=== PATIENT | female | born 1995 | race Caucasian/White ===

== ENCOUNTER → 2017-01-23 | Outpatient (CLI) | payer OTHER ==
[~2017-01-23] MED LIST: ACET-1256 PO; CEPH500C2 PO; ONDA4TAB46 PO; PRENTAB26 PO
[2017-01-23 16:39] LABS: URINE APPEARANCE CLEAR (CLEAR); URINE BILIRUBIN NEG (NEG); URINE COLOR YELLOW; URINE NITRITE NEG (NEG); URINE PH 6.5 (4.5-7.5); URINE SPECIFIC GRAVITY 1.014 (1.000-1.030); UROBILINOGEN NEG (NEG)
[2017-01-23 16:45] LABS: MANUAL MICROSCOPIC REQUIRED? NO; REVIEW REQ? NO
== END | disposition home or self-care (01) ==
LOC: C.LABSPEC 16:20
PROVIDERS: ATTEND Obstetrics & Gynecology
DX: Z34.90 Encounter for supervision of normal pregnancy, unspecified, unspecified trimester (principal)

== ENCOUNTER → 2017-01-28 | Outpatient (CLI) | payer OTHER ==
[2017-01-31 00:51] LABS: CHLAMYDIA TRACH RNA*** NOT DETECTED (NOT DETECTED); GC (NEIS GONORRHOEAE)RNA** NOT DETECTED (NOT DETECTED)
== END | disposition home or self-care (01) ==
LOC: C.LABSPEC 17:40
PROVIDERS: ATTEND Obstetrics & Gynecology
DX: Z34.90 Encounter for supervision of normal pregnancy, unspecified, unspecified trimester (principal)

== ENCOUNTER → 2017-01-28 | Outpatient (CLI) | payer OTHER ==
[2017-01-28 15:56] LABS: BASO % 0.2 %; BASO ABS # 0.02 K/uL (0-0.2); COMPLETE YES; HEMATOCRIT 41.4 % (37-47); IG% 0.3 %; LYMPH % 18.3 %; LYMPH ABS # 2.11 K/uL (1.2-3.4); MEAN CELL VOLUME 86.3 fL (80-100); MEAN CORPUSCULAR HEMOGLOBIN 28.8 pg (25-34); MEAN CORPUSCULAR HGB CONC 33.3 g/dl (32-36); MEAN PLATELET VOLUME 10.9 fL (7.4-10.4); MONO % 6.9 %; NEUT % 73.3 %; PLATELET COUNT 254 K/uL (130-400); WHITE BLOOD COUNT 11.53 K/uL (4.8-10.8)
== END | disposition home or self-care (01) ==
LOC: C.LAB1850 15:07
PROVIDERS: ATTEND Obstetrics & Gynecology
DX: Z34.90 Encounter for supervision of normal pregnancy, unspecified, unspecified trimester (principal)

== ENCOUNTER 2017-02-24 18:49 | Emergency (ER) | payer OTHER ==
[~2017-02-24] VITALS: Ht 154.9 cm; Wt 77.4 kg
[2017-02-24 18:53] VITALS: BP 113/76; PULSE 74; TEMP 37.1; O2SAT 98; Ht 154.9 cm; Wt 77.4 kg
[2017-02-24] MEDS ORDERED: ACETAMINOPHEN 500 MG TAB PO STA (19:08)
[2017-02-24] MEDS ORDERED: CEPH500C2 PO (19:12)
[2017-02-24] MEDS ORDERED: CEPHALEXIN 500MG HOME PACK 1 EA BTL PO ONE (19:15)
[2017-02-24] MEDS ORDERED: CEPHALEXIN MONOHYDRATE 250 MG CAP PO ONE (19:15)
--- NOTE | 2017-02-24 19:55 | EMERGENCY ROOM VISIT NOTE ---
History Report prepared by Elie: Suzi [place] Under the Supervision of: Harris RodriguezO. First contact with patient: 18:57 Chief Complaint: DENTAL PAIN Stated Complaint: TOOTHACHE,SWELLING,ETC Nursing Triage Summary: possible tooth abscess, left side History of Present Illness The patient is a 21 year old female who presents to the Emergency Room with complaints of worsening dental pain for the past 3 days. The patient notes pain around one of her left lower molars. She states that part of her tooth has broken off and she has had issues with pain in the past. She has seen her dentist for this problem and was unable to get the tooth removed because she was . The patient states that she is currently 12 weeks . Today her pain became much worse than it has been. She took Tylenol at 3pm. She rates her current pain as an 8/10 in severity. Source of History: patient Onset: 3 days ago Position: teeth Symptom Intensity: 8/10 Timing: worsening Modifying Factors (Relieving): tylenol Review of Systems See HPI for pertinent positives & negatives. A total of 6 systems reviewed and were otherwise negative. Past Medical & Surgical Medical Problems: (1) Abdominal pain (2) Abdominal pain (3) Abdominal pain affecting , antepartum (4) Dental abscess (5) Dental abscess (6) Depression (7) Nausea, vomiting and diarrhea (8) Normal labor and delivery (9) Pain, dental (10) Pelvic pain (11) Premature infant of 33 weeks gestation (12) contractions (13) Right ovarian cyst (14) Supervision of other normal Family History Cancer Social History Smoking Status: Former Smoker Alcohol Use: occasionally Drug Use: none Marital Status: single Housing Status: lives with family Occupation Status: employed Current/Historical Medications Scheduled Cephalexin Monohydrate (Keflex), 500 MG PO QID Allergies Coded Allergies: No Known Allergies (Unverified , 07/15/16) Physical Exam Vital Signs Date Time Temp Pulse Resp B/P (MAP) Pulse Ox O2 Delivery O2 Flow Rate FiO2 02/24/17 18:53 37.1 74 17 113/76 98 Room Air Physical Exam GENERAL: Patient is awake, alert, mildly anxious appearing but overall comfortable. EYES: The conjunctivae are clear. The pupils are round and reactive. EARS, NOSE, MOUTH AND THROAT: The nose is without any evidence of any deformity. Mucous membranes are moist tongue is midline. There were dental caries noted in the left lower primary molar. There was gumline swelling but no erythema or fluctuance noted. There was significant tenderness to percussion. There was no trismus or swelling over the buccal mucosa. NECK: The neck is nontender and supple. RESPIRATORY: Normal respiratory effort is noted there is no evidence of wheezing rhonchi or rales CARDIOVASCULAR: Regular rate and rhythm noted there no murmurs rubs or gallops normal S1 normal S2 GASTROINTESTINAL: The abdomen is soft. Bowel sounds are present in all quadrants. Abdomen is nontender MUSCULOSKELETAL/EXTREMITIES: There is no evidence of gross deformity full range of motion is noted in the hips and shoulders Medical Decision & Procedures Medications Administered Medications (Trade) Dose Ordered Sig/Glenn Route Start Time Stop Time Status Last Admin Dose Admin Cephalexin Monohydrate (Keflex Cap) 500 mg NOW ONCE PO 02/24/17 19:15 02/24/17 19:16 DC 02/24/17 19:16 500 MG Cephalexin Monohydrate (Keflex 500MG Home Pack) 1 homepack NOW ONCE PO 02/24/17 19:15 02/24/17 19:16 DC 02/24/17 19:16 1 HOMEPACK Acetaminophen (Tylenol Tab) 1,000 mg ONE STAT PO 02/24/17 19:08 02/24/17 19:10 DC 02/24/17 19:16 1,000 MG ED Course 185: The patient was evaluated in room A4B. A complete history and physical examination were performed. At this time I discussed the results and treatment plan with the patient. I answered all pertaining questions that she had. She expressed understanding and verbalized agreement The patient will be discharged home. 190: Tylenol tab 1000 mg PO 1914: Keflex 500 mg PO 1 homepack, Keflex 500 mg PO Medical Decision Differential diagnosis: Etiologies such as fracture, dislocation, neurovascular compromise, compartment syndrome, soft tissue injury, as well as others were entertained. Medication Reconciliation: I attest that I have personally reviewed the patient' s current medications list. Blood pressure screening: Patient was found to have normal blood pressure on screening and does not require follow-up. The patient is a 21-year-old female who presented to the emergency department for an evaluation of dental pain. The patient has a dental carry on her left lower molar which has given her problems in the past but because she is she cannot have definitive care. The patient had some gumline swelling but no definite signs of abscess which I felt could be drained at this time. The patient was started on antibiotic. The patient was encouraged to follow-up with her primary care physician or her primary dentist this was possible. She was also encouraged to continue using Tylenol as directed for pain and return to the emergency Department immediately if she develops signs of fever or trismus or significant swelling. [place] Drug Monitoring [place] Search Results: patient reviewed within database, no issues identified Impression Primary Impression: Pain, dental Additional Impression: Dental caries Scribe Attestation The scribe's documentation has been prepared under my direction and personally reviewed by me in its entirety. I confirm that the note above accurately reflects all work, treatment, procedures, and medical decision making performed by me. Departure Information Dispostion Home / Self-Care Prescriptions Cephalexin Monohydrate (KEFLEX) 500 Mg Cap 500 MG PO QID, #28 CAP Prov: Eliazar Padilla, DO 02/24/17 Referrals No Doctor, Assigned (PCP) Forms HOME CARE DOCUMENTATION FORM, IMPORTANT VISIT INFORMATION Patient Instructions My [facility] Additional Instructions Call your dentist to schedule a follow-up appointment. Continue using Tylenol as directed for pain. Continued a full course of antibiotic. Return to the emergency Department immediately if he develop worsening swelling high fever inability to open her mouth or arises. Problem Qualifiers
== END 2017-02-24 19:24 | disposition home or self-care (01) ==
LOC: C.EDB 18:50 → C.EDA 19:24
DX: O99.611 Diseases of the digestive system complicating pregnancy, first trimester (principal); K08.89 Other specified disorders of teeth and supporting structures; K02.9 Dental caries, unspecified; Z3A.12 12 weeks gestation of pregnancy; Z87.51 Personal history of pre-term labor; Z87.891 Personal history of nicotine dependence

== ENCOUNTER → 2017-03-28 | Outpatient (CLI) | payer OTHER ==
[2017-03-28 13:57] LABS: GTGD 50 Grams
== END | disposition home or self-care (01) ==
LOC: C.LAB1850 11:35
PROVIDERS: ATTEND Obstetrics & Gynecology
DX: Z34.82 Encounter for supervision of other normal pregnancy, second trimester (principal)

== ENCOUNTER 2017-04-02 03:34 | Emergency (ER) | payer OTHER ==
[~2017-04-02] VITALS: Ht 154.9 cm; Wt 77.9 kg
[~2017-04-02 03:34] MED LIST changes: -ACET-1256 PO; -ONDA4TAB46 PO; -PRENTAB26 PO
[2017-04-02 03:39] VITALS: BP 109/78; TEMP 36.8; Ht 154.9 cm; Wt 77.9 kg
--- NOTE | 2017-04-02 03:59 | EMERGENCY ROOM VISIT NOTE ---
History Report prepared by Elie: Corby Sandoval Under the Supervision of: Dr. Edward James M.D. First contact with patient: 03:43 Chief Complaint: NECK PAIN Stated Complaint: STIFF,PAINFUL NECK History of Present Illness The patient is a 21 year old female who presents to the Emergency Room with complaints of stiff-like neck pain that began 4 days ago. She rates her pain a 7 /10 in severity. She denies any trauma, lifting, or long drives. She denies any fevers. Her pain is radiating down her back. Movement makes her pain worse. She recently finished a course of antibiotics for her teeth, which are doing significantly better. She did not take any medications prior to arrival. This is because the patient is with her second child. She is 17 weeks . She has a past medical history of sciatica, but notes that it does not feel like that. Source of History: patient Onset: 4 days ago Position: neck Symptom Intensity: 7/10 Quality: other (Tightness) Timing: constant Modifying Factors (Worsening): movement Associated Symptoms: No fevers Review of Systems See HPI for pertinent positives & negatives. A total of 6 systems reviewed and were otherwise negative. Past Medical & Surgical Medical Problems: (1) Abdominal pain (2) Abdominal pain (3) Abdominal pain affecting , antepartum (4) Dental abscess (5) Dental abscess (6) Depression (7) Nausea, vomiting and diarrhea (8) Normal labor and delivery (9) Pain, dental (10) Pelvic pain (11) Premature infant of 33 weeks gestation (12) contractions (13) Right ovarian cyst (14) Supervision of other normal Family History Cancer Social History Smoking Status: Never Smoker Alcohol Use: occasionally Drug Use: none Marital Status: single Housing Status: lives with family Occupation Status: employed Current/Historical Medications No Active Prescriptions or Reported Meds Allergies Coded Allergies: No Known Allergies (Unverified , 04/02/17) Physical Exam Vital Signs Date Time Temp Pulse Resp B/P (MAP) Pulse Ox O2 Delivery O2 Flow Rate FiO2 04/02/17 04:17 77 18 99 04/02/17 03:39 36.8 75 18 109/78 99 Room Air Physical Exam GENERAL: Patient is well appearing and in no acute distress. HEENT: No acute trauma, normocephalic atraumatic, mucous membranes moist, no nasal congestion, no scleral icterus. NECK: No stridor, no adenopathy, no meningismus, trachea is midline. LUNGS: No dyspnea. Clear to auscultation and equal bilaterally. No wheeze, no rhonchi. HEART: Regular rate and rhythm. No murmurs, rubs, gallops appreciated. ABDOMEN: Soft, nontender, bowel sounds positive, fundus is consistent with dates , no peritonitis. BACK: No midline tenderness, no CVA tenderness NEUROLOGIC: Alert and oriented, no acute motor or sensory deficits, no focal weakness, cranial nerves grossly intact. SKIN: No rash, no jaundice, no diaphoresis. Medical Decision & Procedures ED Course 0343: The patient was evaluated in room B10. A complete history and physical exam was performed. Medical Decision Medication Reconciliation: I attest that I have personally reviewed the patient 's current medication list. Blood pressure screening: Patient was found to have normal blood pressure on screening and does not require follow-up. 21 female who is 17 wks arrives for evaluation of bilateral lower cervical paraspinal muscle pain. Consistent with strain. No neuro deficits. No fevers. No other symptoms. No evidence of meningitis. She has full ROM neck without rigidity. Stable and comfortable. Discussed medications she can use such as Tylenol and Benadryl that are safe in . Reviewed symptoms requiring RTED. Impression Primary Impression: Neck muscle strain Scribe Attestation The scribe's documentation has been prepared under my direction and personally reviewed by me in its entirety. I confirm that the note above accurately reflects all work, treatment, procedures, and medical decision making performed by me. Departure Information Dispostion Home / Self-Care Prescriptions No Active Prescriptions or Reported Meds Referrals No Doctor, Assigned (PCP) Forms HOME CARE DOCUMENTATION FORM, IMPORTANT VISIT INFORMATION, WORK / SCHOOL INSTRUCTIONS Patient Instructions My [facility], Neck Strain - [facility] Additional Instructions Tylenol (acetaminophen) and Benadryl (diphenhydramine) are safe in .
[2017-04-02 04:17] VITALS: PULSE 77; O2SAT 99
== END 2017-04-02 04:18 | disposition home or self-care (01) ==
LOC: C.EDB 03:35
DX: S16.1XXA Strain of muscle, fascia and tendon at neck level, initial encounter (principal); X58.XXXA Exposure to other specified factors, initial encounter; O99.89 Other specified diseases and conditions complicating pregnancy, childbirth and the puerperium; Z3A.17 17 weeks gestation of pregnancy; Z80.9 Family history of malignant neoplasm, unspecified

== ENCOUNTER 2017-05-10 21:37 | Outpatient (CLI) | payer OTHER ==
[~2017-05-10] VITALS: Ht 154.9 cm; Wt 77.3 kg
[2017-05-10 22:31] VITALS: Ht 154.9 cm; Wt 77.3 kg
[2017-05-10] MEDS ORDERED: ACET-1256 PO (22:34)
[2017-05-10 22:40] LABS: URINE APPEARANCE TURBID (CLEAR); URINE BILIRUBIN NEG (NEG); URINE COLOR YELLOW; URINE EPITHELIAL CELL AUTO >30 /lpf (0-5); URINE NITRITE NEG (NEG); URINE PH 7.5 (4.5-7.5); URINE SPECIFIC GRAVITY 1.024 (1.000-1.030); UROBILINOGEN NEG (NEG); ZZUR CULT IF INDIC CLEAN CATCH YES
[2017-05-10 22:41] LABS: MANUAL MICROSCOPIC REQUIRED? NO; REVIEW REQ? NO
--- NOTE | 2017-05-15 14:24 | EDITING REQUIRED CODING QUERY ---
DIAGNOSIS NEEDED To promote full compliance with coding requirements relating to patient care, physician participation is requested in all cases of planning management it specialist uncertainty. Please assist us with the question(s) below: Coding Question: The patient received care in labor and delivery on 05/10/17 as noted within the record. Please document the diagnosis that is being addressed by the medication/treatment. Provider Response: DIAGNOSIS: Abdominal pain in WEEKS GESTATION: 23 week Thank you for your assistance, Natalee Acosta - Leakage Tester
== END 2017-05-10 23:11 | disposition home or self-care (01) ==
LOC: C.LD 21:37 → C.OPB 21:37
PROVIDERS: ATTEND Obstetrics & Gynecology
DX: O99.89 Other specified diseases and conditions complicating pregnancy, childbirth and the puerperium (principal); R10.9 Unspecified abdominal pain; Z3A.23 23 weeks gestation of pregnancy

== ENCOUNTER 2017-05-12 15:52 | Emergency (ER) | payer OTHER ==
[~2017-05-12] VITALS: Ht 154.9 cm; Wt 78.2 kg
[~2017-05-12 15:52] MED LIST changes: +ACET-1256 PO; -CEPH500C2 PO
[2017-05-12 16:08] VITALS: TEMP 36.8; Ht 154.9 cm; Wt 78.2 kg
[2017-05-12] MEDS ORDERED: SODIUM CHLORIDE 0.9% 1000ML 1,000 ML IV ONE (16:45)
[2017-05-12 16:50] LABS: BASO % 0.2 %; BASO ABS # 0.02 K/uL (0-0.2); COMPLETE YES; EOS % 0.4 %; HEMATOCRIT 36.1 % (37-47); IG% 0.4 %; LYMPH % 13.7 %; LYMPH ABS # 1.43 K/uL (1.2-3.4); MEAN CELL VOLUME 85.3 fL (80-100); MEAN CORPUSCULAR HEMOGLOBIN 29.8 pg (25-34); MEAN CORPUSCULAR HGB CONC 34.9 g/dl (32-36); MONO % 5.7 %; NEUT % 79.6 %; PLATELET COUNT 210 K/uL (130-400); RED BLOOD COUNT 4.23 M/uL (4.2-5.4); WHITE BLOOD COUNT 10.44 K/uL (4.8-10.8)
--- NOTE | 2017-05-12 16:50 | EMERGENCY ROOM VISIT NOTE ---
History First contact with patient: 16:13 Chief Complaint: ABDOMINAL PAIN Stated Complaint: SEVERE STOMACH PAIN, Nursing Triage Summary: Pt states seen here 2 night ago for "stomach pain". Pt states she is 23 wks preg, was sent upstairs and d/c home. Pt states, "I have constipation that just started yesterday. Yesterday I had nausea." Lower abd pain x 4 days. Pain worse after eating. History of Present Illness The patient is a 22 year old female who presents to the Emergency Room with complaints of abdominal pain that started 4 days ago. She describes it as a sharp, intermittent pain around her umbilicus and in the epigastric region. She is also has severe nausea. She has not had any vomiting. She did have loose stools a few days ago. Now she feels constipated. He denies any fever or chills. The patient is 23 weeks . She is with 2 miscarriages. The patient was monitored on the OB floor 2 days ago for these symptoms. She was told that it was not related to the baby. She denies any bleeding. Good movement. She is not taking anything for pain. Review of Systems 10 system review performed and negative unless noted in HPI or below Past Medical/Surgical History Medical Problems: (1) Abdominal pain (2) Abdominal pain (3) Abdominal pain affecting , antepartum (4) Dental abscess (5) Dental abscess (6) Depression (7) Nausea, vomiting and diarrhea (8) Normal labor and delivery (9) Pain, dental (10) Pelvic pain (11) Premature of 33 weeks gestation (12) contractions (13) Right ovarian cyst (14) Supervision of other normal Family History Cancer Social History Smoking Status: Former Smoker Alcohol Use: occasionally Drug Use: none Marital Status: single Housing Status: lives with family Occupation Status: employed Current/Historical Medications Scheduled Multivit/Min/Iron/Fol Ac/Pren ( Vitamin), 1 TAB PO DAILY Physical Exam Vital Signs Date Time Temp Pulse Resp B/P (MAP) Pulse Ox O2 Delivery O2 Flow Rate FiO2 05/12/17 18:28 66 18 135/102 100 Room Air 05/12/17 17:51 66 05/12/17 16:08 36.8 70 20 111/69 97 Room Air Physical Exam VITALS: Vitals are noted on the nurse's note and reviewed by myself. Vital signs stable. GENERAL: 22-year-old female, in no acute distress, nondiaphoretic, well- developed well-nourished. SKIN: The skin was without rashes, erythema, edema, or bruising. HEAD: Normocephalic atraumatic. MOUTH: Mucous membranes fairly dry HEART: Regular rate and rhythm without murmurs gallops or rubs. LUNGS: Clear to auscultation bilaterally without wheezes, rales or rhonchi. No accessory muscle use. ABDOMEN: Bowel sounds present, but hypoactive. Gravid..Soft, nontender, without organomegaly. No guarding or rebound tenderness. MUSCULOSKELETAL: No muscle atrophy, erythema, or edema noted. Full range of motion in all extremities. No tenderness to palpation. Normal gait. Strength 5/5 throughout. NEURO: Patient was alert and oriented to person place and time. Normal sensation to touch. No focal neurological deficits. Medical Decision & Procedures ER Provider Diagnostic Interpretation: Patient Name: MARA MARIE Unit Number: [id number] Dictated: 05/12/171909 Transcribed: 05/12/171909 JRB Printed Date/Time: [~ rep prt dt]/[~ rep prt tm] [~ rep ct labl] - [~ rep ct ivnm] [facility] Radiology Department [place] [id number] Dictated: 05/12/171909 Transcribed: 05/12/171909 JRB Printed Date/Time: [~ rep prt dt]/[~ rep prt tm] [~ rep ct labl] - [~ rep ct ivnm] GALLBLADDER-ABD LIMITED HISTORY: 22 years-old Female acute epigastric abd pain n/v worse with eating COMPARISON: CT abdomen and pelvis 02/03/2010 TECHNIQUE: Multiple real-time sonographic images of the abdominal right upper quadrant were obtained assessing grayscale appearance and color flow. FINDINGS: The imaged portions of the pancreas are unremarkable with the body and tail obscured by bowel gas. Hepatic parenchyma is homogeneous without focal mass. There is minimal layering sludge within the gallbladder lumen without shadowing cholelithiasis, gallbladder wall thickening or pericholecystic fluid collections. Sonographic Buck sign was reported as negative. Common bile duct is within the upper limits of normal near the pancreatic head, 0.6 cm without obstructing stone or mass identified. Imaged right kidney is unremarkable without hydronephrosis. IMPRESSION: 1. Mild gallbladder sludge without sonographic evidence of cholelithiasis or acute cholecystitis. 2. Common bile duct measures within the upper limits of normal near the pancreatic head, 0.6 cm without obstructing stone or mass identified . The above report was generated using voice recognition software. It may contain grammatical, syntax or spelling errors. Electronically signed by: Jhonny Yates M.D. 05/12/2017 7:13 PM Dictated Date/Time: 05/12/2017 7:10 PM The status of this report is Signed. Draft = Not yet reviewed or approved by Radiologist. Signed = Reviewed and approved by Radiologist. <AttendingPhy></AttendingPhy> <FamilyPhy>Len Dumont M.D.</FamilyPhy> < PrimaryPhy>Len Dumont M.D.</PrimaryPhy> <UnitNumber>[id number]</ UnitNumber> <VisitNumber>[id number]</VisitNumber> <PatientName>MARA MARIE< /PatientName> <DateOfBirth>1995</DateOfBirth> <Location>[facility]</Location> < ServiceDate>05/12/17</ServiceDate> <MNE>ESINDI</MNE> <OrderingPhy>Kelsy Garcia PA-C</OrderingPhy> <OrderingPhyMNE>f rep ord dr perez</OrderingPhyMNE> < DictatingPhyMNE>f rep dict dr perez</DictatingPhyMNE> <CCListMNE>f rep ct [place]</ CCListMNE> <AdmittingPhyMNE>f pt admit dr perez</AdmittingPhyMNE> <AttendingPhyMNE >f pt attend dr perez</AttendingPhyMNE> <ConsultingPhyMNE>f pt consult dr perez</ConsultingPhyMNE> <FamilyPhyMNE>f pt fam dr perez</FamilyPhyMNE> <OtherPhyMNE>f pt other dr perez</OtherPhyMNE> < PrimaryPhyMNE>f pt prim care dr perez</PrimaryPhyMNE> <ReferringPhyMNE>f pt referring dr perez</ReferringPhyMNE> Laboratory Results 05/12/17 16:30 Red Blood Count 4.23, Mean Corpuscular Volume 85.3, Mean Corpuscular Hemoglobin 29.8, Mean Corpuscular Hemoglobin Concent 34.9, Mean Platelet Volume 11.0, Neutrophils (%) (Auto) 79.6, Lymphocytes (%) (Auto) 13.7, Monocytes (%) (Auto) 5.7, Eosinophils (%) (Auto) 0.4, Basophils (%) (Auto) 0.2, Neutrophils # (Auto) 8.32, Lymphocytes # (Auto) 1.43, Monocytes # (Auto) 0.59, Eosinophils # (Auto) 0.04, Basophils # (Auto) 0.02 05/12/17 16:30 Test 05/12/17 16:30 White Blood Count 10.44 K/uL (4.8-10.8) Red Blood Count 4.23 M/uL (4.2-5.4) Hemoglobin 12.6 g/dL (12.0-16.0) Hematocrit 36.1 % (37-47) Mean Corpuscular Volume 85.3 fL (80-100) Mean Corpuscular Hemoglobin 29.8 pg (25-34) Mean Corpuscular Hemoglobin Concent 34.9 g/dl (32-36) Platelet Count 210 K/uL (130-400) Mean Platelet Volume 11.0 fL (7.4-10.4) Neutrophils (%) (Auto) 79.6 % Lymphocytes (%) (Auto) 13.7 % Monocytes (%) (Auto) 5.7 % Eosinophils (%) (Auto) 0.4 % Basophils (%) (Auto) 0.2 % Neutrophils # (Auto) 8.32 K/uL (1.4-6.5) Lymphocytes # (Auto) 1.43 K/uL (1.2-3.4) Monocytes # (Auto) 0.59 K/uL (0.11-0.59) Eosinophils # (Auto) 0.04 K/uL (0-0.5) Basophils # (Auto) 0.02 K/uL (0-0.2) RDW Standard Deviation 41.3 fL (36.4-46.3) RDW Coefficient of Variation 13.3 % (11.5-14.5) Immature Granulocyte % (Auto) 0.4 % Immature Granulocyte # (Auto) 0.04 K/uL (0.00-0.02) Urine Color YELLOW Urine Appearance CLEAR (CLEAR) Urine pH 7.5 (4.5-7.5) Urine Specific [place] 1.015 (1.000-1.030) Urine Protein NEG (NEG) Urine Glucose (UA) NEG (NEG) Urine Ketones TRACE (NEG) Urine Occult Blood NEG (NEG) Urine Nitrite NEG (NEG) Urine Bilirubin NEG (NEG) Urine Urobilinogen NEG (NEG) Urine Leukocyte Esterase MODERATE (NEG) Urine WBC (Auto) 1-5 /hpf (0-5) Urine RBC (Auto) 0-4 /hpf (0-4) Urine Hyaline Casts (Auto) 0 /lpf (0-5) Urine Epithelial Cells (Auto) >30 /lpf (0-5) Urine Bacteria (Auto) 1+ (NEG) Anion Gap 9.0 mmol/L (3-11) Est Creatinine Clear Calc Drug Dose 155.9 ml/min Estimated GFR () > 150.0 Estimated GFR (Non- 134.9 BUN/Creatinine Ratio 11.7 (10-20) Calcium Level 8.5 mg/dl (8.5-10.1) Total Bilirubin 0.5 mg/dl (0.2-1) Aspartate Amino Transf (AST/SGOT) 13 U/L (15-37) Alanine Aminotransferase (ALT/SGPT) 13 U/L (12-78) Alkaline Phosphatase 84 U/L (45-117) Total Protein 6.8 gm/dl (6.4-8.2) Albumin 2.9 gm/dl (3.4-5.0) Globulin 3.9 gm/dl (2.5-4.0) Albumin/Globulin Ratio 0.8 (0.9-2) Lipase 109 U/L (73-393) Medications Administered Medications (Trade) Dose Ordered Sig/Glenn Route Start Time Stop Time Status Last Admin Dose Admin Sodium Chloride 1,000 ml @ 999 mls/hr Q1H1M ONCE IV 05/12/17 16:45 05/12/17 17:45 DC 05/12/17 16:45 999 MLS/HR Potassium Chloride (Kcl 10 Meq / Wtr) 10 meq NOW STAT IV 05/12/17 17:23 05/12/17 17:24 DC 05/12/17 17:29 10 MEQ ED Course Patient was seen and examined Vital signs including blood pressure were reviewed medications list was verified with patient Labs were obtained, and a saline lock was established The patient declined pain medication Imaging was performed and reviewed Upon reevaluation, the patient was resting comfortably. The patient was given potassium chloride 10 mEq IV. She was also given potassium chloride 40 mEq po We reviewed the results of her workup. She voiced understanding. I reviewed discharge instructions the patient. They voiced understanding and had no further questions. Medical Decision DIFFERENTIAL DIAGNOSIS: Gastroenteritis, Hepatitis, cholecystitis, cholangitis, biliary colic, pancreatitis, appendicitis, inguinal hernia, nephrolithiasis, inflammatory bowel disease, mesenteric adenitis, peptic ulcer disease, GERD, gastritis, pancreatitis,, bowel obstruction, splenic infarct, diverticulitis, mesenteric ischemia, metabolic, peritonitis, among others. This patient is a 22-year-old female that presents emergency department complaining of intermittent sharp abdominal pain over the last couple days. Ultrasound revealed sludge in the gallbladder. No cholelithiasis was noted. The common bile duct was on the upper limits of normal. There is no white count. The LFTs are normal. She is afebrile. Although this is likely the cause of her pain, I do not think that she needs a cholecystectomy now. She was given the name of a general surgeon for follow-up. She will return to the emergency department with any new or worsening symptoms. Of note, the patient's potassium was also low. This was replaced. She was encouraged to eat bananas. This chart was completed in part utilizing [employer] Speech Voice Recognition software. Attempts were made to minimize the grammatical errors, random word insertions, pronoun errors and incomplete sentences. Any formal questions or concerns about the content, text or information contained within the body of this dictation should be directly addressed to the provider for clarification. Medication Reconcilliation Current Medication List: was personally reviewed by me Blood Pressure Screening Patient's blood pressure: Normal blood pressure Impression Primary Impression: Abdominal pain Departure Information Dispostion Home / Self-Care Condition GOOD Prescriptions Ondansetron Hcl (ZOFRAN) 4 Mg Tab 4 MG PO Q8H Y for Nausea, #15 TAB Prov: Kelsy Garcia PA-C 05/12/17 Referrals Len Dumont M.D. (PCP) Anders Barton M.D. Patient Instructions My [facility] Additional Instructions You were evaluated in the emergency department today for abdominal pain. This is likely stemming from your gallbladder. Your potassium was also noted to be low. Please eat foods high in potassium such as bananas. You have been provided with a number of a general surgeon. Please call for a follow-up appointment. You may take Zofran 4 mg every 8 hours as needed for nausea Return to the emergency department if you have any of the following symptoms: -Fever of 102F or greater -Persistent vomiting - Persistent diarrhea -Lethargy -Chest pain -Shortness of breath -Worsening pain
[2017-05-12 16:58] LABS: ALT/SGPT 13 U/L (12-78); BLOOD UREA NITROGEN 6 mg/dl (7-18); BUN/CREATININE RATIO 11.7 (10-20); CALCIUM 8.5 mg/dl (8.5-10.1); CARBON DIOXIDE 25 mmol/L (21-32); CHLORIDE 103 mmol/L (98-107); CREATININE 0.54 mg/dl (0.60-1.20); GLUCOSE 76 mg/dl (70-99); SODIUM 137 mmol/L (136-145)
[2017-05-12 17:01] LABS: ALB/GLOB RATIO 0.8 (0.9-2); ALKALINE PHOSPHATASE 84 U/L (45-117); AST/SGOT 13 U/L (15-37)
[2017-05-12] MEDS ORDERED: POTASSIUM CHLORIDE 10 MEQ / 100ML WTR IV STA (17:23)
[2017-05-12 17:26] LABS: URINE APPEARANCE CLEAR (CLEAR); URINE BILIRUBIN NEG (NEG); URINE COLOR YELLOW; URINE EPITHELIAL CELL AUTO >30 /lpf (0-5); URINE NITRITE NEG (NEG); URINE PH 7.5 (4.5-7.5); URINE SPECIFIC GRAVITY 1.015 (1.000-1.030); UROBILINOGEN NEG (NEG)
[2017-05-12 17:27] LABS: MANUAL MICROSCOPIC REQUIRED? NO; REVIEW REQ? NO
--- NOTE | 2017-05-12 19:14 | DIAGNOSTIC IMAGING REPORT ---
GALLBLADDER-ABD LIMITED HISTORY: 22 years-old Female acute epigastric abd pain n/v worse with eating COMPARISON: CT abdomen and pelvis 02/03/2010 TECHNIQUE: Multiple real-time sonographic images of the abdominal right upper quadrant were obtained assessing grayscale appearance and color flow. FINDINGS: The imaged portions of the pancreas are unremarkable with the body and tail obscured by bowel gas. Hepatic parenchyma is homogeneous without focal mass. There is minimal layering sludge within the gallbladder lumen without shadowing cholelithiasis, gallbladder wall thickening or pericholecystic fluid collections. Sonographic Buck sign was reported as negative. Common bile duct is within the upper limits of normal near the pancreatic head, 0.6 cm without obstructing stone or mass identified. Imaged right kidney is unremarkable without hydronephrosis. IMPRESSION: 1. Mild gallbladder sludge without sonographic evidence of cholelithiasis or acute cholecystitis. 2. Common bile duct measures within the upper limits of normal near the pancreatic head, 0.6 cm without obstructing stone or mass identified . The above report was generated using voice recognition software. It may contain grammatical, syntax or spelling errors. Electronically signed by: Jhonny Yates M.D. 05/12/2017 7:13 PM Dictated Date/Time: 05/12/2017 7:10 PM
[2017-05-12] MEDS ORDERED: ONDA4TAB46 PO (19:45)
[2017-05-12] MEDS ORDERED: POTASSIUM CHLORIDE 10 MEQ TABCR PO STA (19:48)
[2017-05-12 20:20] VITALS: BP 112/70; PULSE 96; O2SAT 99
[2017-05-12] MEDS ORDERED: PRENTAB26 PO (22:34)
== END 2017-05-12 20:21 | disposition home or self-care (01) ==
LOC: C.EDB 15:53 → C.EDA 20:21
DX: R10.13 Epigastric pain (principal); O26.892 Other specified pregnancy related conditions, second trimester; Z3A.23 23 weeks gestation of pregnancy; F32.9 Major depressive disorder, single episode, unspecified; O99.342 Other mental disorders complicating pregnancy, second trimester; Z80.9 Family history of malignant neoplasm, unspecified; Z87.891 Personal history of nicotine dependence

== ENCOUNTER 2017-05-15 21:23 | Emergency (ER) | payer OTHER ==
[~2017-05-15] VITALS: Ht 154.9 cm; Wt 78.2 kg
[~2017-05-15 21:23] MED LIST changes: -ACET-1256 PO; +ONDA4TAB46 PO; +PRENTAB26 PO
[2017-05-15 21:30] VITALS: TEMP 36.9; Ht 154.9 cm; Wt 78.2 kg
[2017-05-15] MEDS ORDERED: SODIUM CHLORIDE 0.9% 1000ML 1,000 ML IV STA (22:44)
[2017-05-15 23:24] LABS: BASO % 0.1 %; BASO ABS # 0.01 K/uL (0-0.2); COMPLETE YES; EOS % 1.4 %; HEMATOCRIT 38.8 % (37-47); IG% 0.5 %; LYMPH % 19.8 %; LYMPH ABS # 1.66 K/uL (1.2-3.4); MEAN CELL VOLUME 86.6 fL (80-100); MEAN CORPUSCULAR HEMOGLOBIN 30.8 pg (25-34); MEAN CORPUSCULAR HGB CONC 35.6 g/dl (32-36); MEAN PLATELET VOLUME 11.3 fL (7.4-10.4); MONO % 8.2 %; PLATELET COUNT 218 K/uL (130-400); RED BLOOD COUNT 4.48 M/uL (4.2-5.4); WHITE BLOOD COUNT 8.38 K/uL (4.8-10.8)
[2017-05-15 23:26] LABS: URINE APPEARANCE CLOUDY (CLEAR); URINE BILIRUBIN NEG (NEG); URINE COLOR YELLOW; URINE EPITHELIAL CELL AUTO >30 /lpf (0-5); URINE NITRITE NEG (NEG); URINE SPECIFIC GRAVITY 1.018 (1.000-1.030); UROBILINOGEN NEG (NEG); ZZUR CULT IF INDIC CLEAN CATCH NO
[2017-05-15 23:46] LABS: MANUAL MICROSCOPIC REQUIRED? NO; REVIEW REQ? NO
[2017-05-15 23:50] LABS: ALT/SGPT 14 U/L (12-78); AST/SGOT 11 U/L (15-37); BLOOD UREA NITROGEN 8 mg/dl (7-18); BUN/CREATININE RATIO 15.1 (10-20); CARBON DIOXIDE 24 mmol/L (21-32); CHLORIDE 105 mmol/L (98-107); CREATININE 0.53 mg/dl (0.60-1.20); GLUCOSE 68 mg/dl (70-99); POTASSIUM 3.5 mmol/L (3.5-5.1); SODIUM 138 mmol/L (136-145)
[2017-05-15 23:53] LABS: ALB/GLOB RATIO 0.7 (0.9-2); ALKALINE PHOSPHATASE 93 U/L (45-117)
--- NOTE | 2017-05-16 01:54 | EMERGENCY ROOM VISIT NOTE ---
History First contact with patient: 22:25 Chief Complaint: ABDOMINAL PAIN Stated Complaint: SEVERE STOMACH PAIN, DIARRHEA, ETC. Nursing Triage Summary: Pt was seen in ED on Saturday and dx with gal bladder sludge. Pt reports she was told to come back if sx got worse Pt is 23weeks preg History of Present Illness The patient is a 22 year old female who presents to the Emergency Room with complaints of abdominal discomfort, diarrhea and nausea. The patient states that she has had abdominal discomfort for the past 1.5 weeks. She was seen here 3 days ago and told that she had sludge in her gallbladder. She was told to come back here if her symptoms worsened. The patient states that her pain has gradually worsened. The pain is located around her umbilicus and is intermittent. She reports she has had diarrhea for the past 2 days, which is new for her. She does feel like she has been alternating between constipation and diarrhea. She has had nausea, but no vomiting. The patient is 23 weeks . She denies other complications with this . She has been seen [place] [facility]. She reports 2 previous pregnancies with one miscarriage. Review of Systems A complete 10 point review of systems was reviewed with the patient with pertinent positives and negatives as per history of present illness. All else were negative. Past Medical/Surgical History Medical Problems: (1) Abdominal pain (2) Abdominal pain (3) Abdominal pain affecting , antepartum (4) Dental abscess (5) Dental abscess (6) Depression (7) Nausea, vomiting and diarrhea (8) Normal labor and delivery (9) Pain, dental (10) Pelvic pain (11) Premature infant of 33 weeks gestation (12) contractions (13) Right ovarian cyst (14) Supervision of other normal Family History Cancer Social History Smoking Status: Current Every Day Smoker Alcohol Use: occasionally Drug Use: none Marital Status: single Housing Status: lives with family Occupation Status: employed Current/Historical Medications Scheduled Multivit/Min/Iron/Fol Ac/Pren ( Vitamin), 1 TAB PO DAILY Scheduled PRN Ondansetron Hcl (Zofran), 4 MG PO Q8H PRN for Nausea Physical Exam Vital Signs Date Time Temp Pulse Resp B/P (MAP) Pulse Ox O2 Delivery O2 Flow Rate FiO2 05/16/17 02:08 70 18 109/71 99 05/16/17 01:14 61 18 111/72 100 Room Air 05/15/17 23:14 66 18 98/68 99 Room Air 05/15/17 21:30 36.9 68 18 124/87 99 Room Air Physical Exam VITALS: Vitals are noted on the nurse's note and reviewed by myself. Vital signs stable. GENERAL: This is a 22-year-old female, in no acute distress, nondiaphoretic, well-developed well-nourished. EARS: External auditory canals clear, tympanic membranes pearly weller without erythema or effusion bilaterally. EYES: Pupils equal round and reactive to light and accommodation. MOUTH: Mucous membranes moist. NECK: Supple without nuchal rigidity. HEART: Regular rate and rhythm without murmurs gallops or rubs. LUNGS: Clear to auscultation bilaterally without wheezes, rales or rhonchi. ABDOMEN: Fundal height appropriate for gestational age. Soft, no significant tenderness to palpation. NEURO: Patient was alert and oriented to person place and time. Medical Decision & Procedures ER Provider Diagnostic Interpretation: US RUQ: Gallbladder sludge. No inflammatory changes. Pancreas is incompletely visualized. No biliary ductal dilatation. Radiologist: Edilson Babcock M.D. Laboratory Results 05/15/17 23:00 Red Blood Count 4.48, Mean Corpuscular Volume 86.6, Mean Corpuscular Hemoglobin 30.8, Mean Corpuscular Hemoglobin Concent 35.6, Mean Platelet Volume 11.3, Neutrophils (%) (Auto) 70.0, Lymphocytes (%) (Auto) 19.8, Monocytes (%) (Auto) 8.2, Eosinophils (%) (Auto) 1.4, Basophils (%) (Auto) 0.1, Neutrophils # (Auto) 5.86, Lymphocytes # (Auto) 1.66, Monocytes # (Auto) 0.69, Eosinophils # (Auto) 0.12, Basophils # (Auto) 0.01 05/15/17 23:00 Test 05/15/17 23:00 05/15/17 23:10 White Blood Count 8.38 K/uL (4.8-10.8) Red Blood Count 4.48 M/uL (4.2-5.4) Hemoglobin 13.8 g/dL (12.0-16.0) Hematocrit 38.8 % (37-47) Mean Corpuscular Volume 86.6 fL (80-100) Mean Corpuscular Hemoglobin 30.8 pg (25-34) Mean Corpuscular Hemoglobin Concent 35.6 g/dl (32-36) Platelet Count 218 K/uL (130-400) Mean Platelet Volume 11.3 fL (7.4-10.4) Neutrophils (%) (Auto) 70.0 % Lymphocytes (%) (Auto) 19.8 % Monocytes (%) (Auto) 8.2 % Eosinophils (%) (Auto) 1.4 % Basophils (%) (Auto) 0.1 % Neutrophils # (Auto) 5.86 K/uL (1.4-6.5) Lymphocytes # (Auto) 1.66 K/uL (1.2-3.4) Monocytes # (Auto) 0.69 K/uL (0.11-0.59) Eosinophils # (Auto) 0.12 K/uL (0-0.5) Basophils # (Auto) 0.01 K/uL (0-0.2) RDW Standard Deviation 42.4 fL (36.4-46.3) RDW Coefficient of Variation 13.5 % (11.5-14.5) Immature Granulocyte % (Auto) 0.5 % Immature Granulocyte # (Auto) 0.04 K/uL (0.00-0.02) Anion Gap 9.0 mmol/L (3-11) Est Creatinine Clear Calc Drug Dose 158.9 ml/min Estimated GFR () > 150.0 Estimated GFR (Non- 135.7 BUN/Creatinine Ratio 15.1 (10-20) Calcium Level 9.0 mg/dl (8.5-10.1) Total Bilirubin 0.3 mg/dl (0.2-1) Aspartate Amino Transf (AST/SGOT) 11 U/L (15-37) Alanine Aminotransferase (ALT/SGPT) 14 U/L (12-78) Alkaline Phosphatase 93 U/L (45-117) Total Protein 7.3 gm/dl (6.4-8.2) Albumin 3.1 gm/dl (3.4-5.0) Globulin 4.2 gm/dl (2.5-4.0) Albumin/Globulin Ratio 0.7 (0.9-2) Lipase 101 U/L (73-393) Urine Color YELLOW Urine Appearance CLOUDY (CLEAR) Urine pH 7.0 (4.5-7.5) Urine Specific [place] 1.018 (1.000-1.030) Urine Protein NEG (NEG) Urine Glucose (UA) NEG (NEG) Urine Ketones NEG (NEG) Urine Occult Blood NEG (NEG) Urine Nitrite NEG (NEG) Urine Bilirubin NEG (NEG) Urine Urobilinogen NEG (NEG) Urine Leukocyte Esterase SMALL (NEG) Urine WBC (Auto) 1-5 /hpf (0-5) Urine RBC (Auto) 0-4 /hpf (0-4) Urine Hyaline Casts (Auto) 1-5 /lpf (0-5) Urine Epithelial Cells (Auto) >30 /lpf (0-5) Urine Bacteria (Auto) NEG (NEG) Medications Administered Medications (Trade) Dose Ordered Sig/Glenn Route Start Time Stop Time Status Last Admin Dose Admin Sodium Chloride 1,000 ml @ 999 mls/hr Q1H1M STAT IV 05/15/17 22:44 05/15/17 23:44 DC 05/15/17 23:06 999 MLS/HR ED Course The patient was evaluated as above. Labs were drawn and IV access was obtained. Patient was medicated with 1 L normal saline solution. Right upper quadrant ultrasound was performed and read by radiology as above. Case was discussed with Dr. Ortiz of [facility] [employer]. She recommended treating the patient for constipation and having her follow up in the office. Discharge instructions were reviewed with the patient. The patient verbalized understanding of my assessment and treatment plan and was discharged home in good condition. Medical Decision Differential diagnosis includes cholecystitis, appendicitis, colitis, gastroenteritis, constipation, among others. The patient is a 22-year-old female who presents today complaining of generalized abdominal cramping and diarrhea. The patient was seen here earlier this week and told she had gallbladder sludge and could be having pain due to her gallbladder. Labs today revealed no leukocytosis, anemia or concerning electrolyte abnormalities. LFTs were within normal limits. Patient is afebrile. A repeat right upper quadrant ultrasound was performed and again showed gallbladder sludge without acute inflammation. I do not feel that this is likely the source of the patient's discomfort. The case was discussed with Dr. Ortiz of [facility], who recommended treating the patient for possible constipation and having her follow-up in the office. Patient was instructed to use Colace and MiraLAX. Based on the patient's presentation and work up, I feel the patient is stable for outpatient treatment. The patient was educated to return to the emergency department for any worsening of their current condition or new/concerning symptoms. She will follow up with [facility] [employer]. Medication Reconcilliation Current Medication List: was personally reviewed by me Blood Pressure Screening Patient's blood pressure: Normal blood pressure Impression Primary Impression: Diarrhea Additional Impression: Abdominal cramping affecting Departure Information Dispostion Home / Self-Care Condition GOOD Referrals Len Dumont M.D. (PCP) Patient Instructions My [facility] Additional Instructions Try Colace twice daily for constipation. If this does not produce results, you may use MiraLAX as directed [id number]. Follow-up with [facility] IN[employer] as scheduled. Tylenol as needed for pain. Return to the emergency department with any worsening or new/concerning symptoms. Problem Qualifiers Primary Impression: Diarrhea Diarrhea type: unspecified type Qualified Codes: R19.7 - Diarrhea, unspecified
[2017-05-16 02:08] VITALS: BP 109/71; PULSE 70; O2SAT 99
--- NOTE | 2017-05-16 07:03 | DIAGNOSTIC IMAGING REPORT ---
ABDOMINAL ULTRASOUND, RIGHT UPPER QUADRANT HISTORY: Generalized abd pain, nausea. COMPARISON: Abdominal ultrasound 05/12/2017. FINDINGS: Pancreas: The pancreatic head and tail are obscured by overlying bowel gas. The remaining portions of the pancreas are within normal limits. Liver: Unremarkable. Gallbladder: No gallbladder wall thickening. No gallstones. Small amount of gallbladder sludge. CBD: 5 mm. Right kidney: No hydronephrosis. IMPRESSION: No change compared to the prior study. Small amount of gallbladder sludge. No gallbladder wall thickening. Electronically signed by: Tee Mondragon M.D. 05/16/2017 7:02 AM Dictated Date/Time: 05/16/2017 7:01 AM
== END 2017-05-16 02:09 | disposition home or self-care (01) ==
LOC: C.EDB 21:24
DX: O26.92 Pregnancy related conditions, unspecified, second trimester (principal); R10.9 Unspecified abdominal pain; N83.209 Unspecified ovarian cyst, unspecified side; F32.9 Major depressive disorder, single episode, unspecified; F17.200 Nicotine dependence, unspecified, uncomplicated; Z86.19 Personal history of other infectious and parasitic diseases; Z80.9 Family history of malignant neoplasm, unspecified

== ENCOUNTER → 2017-06-17 | Outpatient (CLI) | payer OTHER ==
[2017-06-17 10:58] LABS: HEMATOCRIT 39.2 % (37-47)
[2017-06-17 11:09] LABS: GTGD 50 Grams
[2017-06-17 11:48] LABS: URINE APPEARANCE CLEAR (CLEAR); URINE BILIRUBIN NEG (NEG); URINE COLOR YELLOW; URINE EPITHELIAL CELL AUTO >30 /lpf (0-5); URINE NITRITE NEG (NEG); URINE PH 7.5 (4.5-7.5); URINE SPECIFIC GRAVITY 1.015 (1.000-1.030); UROBILINOGEN NEG (NEG)
[2017-06-17 11:50] LABS: MANUAL MICROSCOPIC REQUIRED? NO; REVIEW REQ? NO
== END | disposition home or self-care (01) ==
LOC: C.LAB1850 09:10
PROVIDERS: ATTEND Obstetrics & Gynecology
DX: Z34.82 Encounter for supervision of other normal pregnancy, second trimester (principal); Z3A.00 Weeks of gestation of pregnancy not specified

== ENCOUNTER 2017-07-19 11:20 | Outpatient (CLI) | payer OTHER ==
[2017-07-19] MEDS ORDERED: BETAMETH SOD PHOS/ACETATE IA 6 MG/ML IM ONE (14:30)
== END 2017-07-19 14:45 | disposition home or self-care (01) ==
LOC: C.OPB 11:20 → C.LD 11:21 → C.OPB 14:45
PROVIDERS: ATTEND Obstetrics & Gynecology
DX: O99.89 Other specified diseases and conditions complicating pregnancy, childbirth and the puerperium (principal); M54.9 Dorsalgia, unspecified; O62.9 Abnormality of forces of labor, unspecified; Z3A.33 33 weeks gestation of pregnancy; Z87.891 Personal history of nicotine dependence

== ENCOUNTER 2017-07-20 14:33 | Outpatient (CLI) | payer OTHER ==
[2017-07-20] MEDS ORDERED: BETAMETH SOD PHOS/ACETATE IA 6 MG/ML IM ONE ×2 (14:34→15:15)
[2017-07-20] MEDS ORDERED: BETAMETH SOD PHOS/ACETATE IA 6 MG/ML ONE (15:02)
--- NOTE | 2017-08-13 11:22 | EDITING REQUIRED CODING QUERY ---
DIAGNOSIS NEEDED To promote full compliance with coding requirements relating to patient care, physician participation is requested in all cases of certified coder uncertainty. Please assist us with the question(s) below: Coding Question: The patient received care in labor and delivery on 07/20/17 as noted within the record. Please document the diagnosis that is being addressed by the medication/treatment. Provider Response: DIAGNOSIS: contractions (+) FFN Vaginal discharge-not amniotic fluid WEEKS GESTATION: 33 weeks Thank you for your assistance, Natalee Acosta - Validation Analyst
== END 2017-07-20 15:39 | disposition home or self-care (01) ==
LOC: C.OPB 14:33 → C.LD 14:34 → C.OPB 15:39
PROVIDERS: ATTEND Obstetrics & Gynecology
DX: O62.9 Abnormality of forces of labor, unspecified (principal); Z3A.33 33 weeks gestation of pregnancy

== ENCOUNTER 2017-07-31 15:10 | Outpatient (CLI) | payer OTHER ==
[2017-07-31] MEDS ORDERED: LACTATED RINGER'S 1000ML 1,000 ML IV SCH (16:04)
[2017-07-31 16:44] LABS: URINE APPEARANCE CLOUDY (CLEAR); URINE BILIRUBIN NEG (NEG); URINE COLOR YELLOW; URINE EPITHELIAL CELL AUTO >30 /lpf (0-5); URINE NITRITE NEG (NEG); URINE PH 7.5 (4.5-7.5); URINE SPECIFIC GRAVITY 1.013 (1.000-1.030); UROBILINOGEN NEG (NEG); ZZUR CULT IF INDIC CLEAN CATCH YES
[2017-07-31 17:05] LABS: MANUAL MICROSCOPIC REQUIRED? NO; REVIEW REQ? NO; SULFASALICYLIC ACID NEG (NEG)
== END 2017-07-31 17:40 | disposition home or self-care (01) ==
LOC: C.OPB 15:10 → C.LD 15:10 → C.OPB 17:40
PROVIDERS: ATTEND Obstetrics & Gynecology
DX: O62.9 Abnormality of forces of labor, unspecified (principal); Z3A.34 34 weeks gestation of pregnancy

== ENCOUNTER → 2017-08-12 | Outpatient (CLI) | payer OTHER | END | disposition home or self-care (01) | LOC: C.LABSPEC 10:55 | PROVIDERS: ATTEND Obstetrics & Gynecology | DX: Z34.83 Encounter for supervision of other normal pregnancy, third trimester (principal) ==

== ENCOUNTER 2017-08-17 22:41 | Outpatient (CLI) | payer OTHER ==
[~2017-08-17] VITALS: Ht 154.9 cm; Wt 78.6 kg
[2017-08-17 23:21] VITALS: Ht 154.9 cm; Wt 78.6 kg
== END 2017-08-18 01:23 | disposition home or self-care (01) ==
LOC: C.LD 22:41 → C.OPB 22:41
PROVIDERS: ATTEND Obstetrics & Gynecology
DX: O62.9 Abnormality of forces of labor, unspecified (principal); Z3A.37 37 weeks gestation of pregnancy

== ENCOUNTER 2017-08-27 12:32 | Inpatient (IN) | payer OTHER ==
[~2017-08-27] VITALS: Ht 154.9 cm; Wt 79.1 kg
[~2017-08-27 12:32] MED LIST changes: -ONDA4TAB46 PO
[2017-08-27 13:24] LABS: BASO % 0.1 %; BASO ABS # 0.01 K/uL (0-0.2); EOS % 0.2 %; HEMATOCRIT 37.1 % (37-47); IG% 0.4 %; LYMPH % 16.2 %; LYMPH ABS # 1.35 K/uL (1.2-3.4); MEAN CELL VOLUME 84.3 fL (80-100); MEAN CORPUSCULAR HEMOGLOBIN 28.4 pg (25-34); MEAN PLATELET VOLUME 11.7 fL (7.4-10.4); NEUT % 79.1 %; PLATELET COUNT 204 K/uL (130-400); WHITE BLOOD COUNT 8.34 K/uL (4.8-10.8)
[2017-08-27 13:26] LABS: COMPLETE YES; MEAN CORPUSCULAR HGB CONC 33.7 g/dl (32-36)
[2017-08-27 13:36] LABS: INR 0.9 (0.9-1.1); PARTIAL THROMBOPLASTIN RATIO 1.1; PROTHROMBIN TIME (PATIENT) 9.5 SECONDS (9.0-12.0)
[2017-08-27 13:49] LABS: ALT/SGPT 22 U/L (12-78); AST/SGOT 15 U/L (15-37); CREATININE 0.61 mg/dl (0.60-1.20)
[2017-08-27] MEDS ORDERED: LACTATED RINGER'S 1000ML 1,000 ML IV PRN (13:53)
[2017-08-27] MEDS ORDERED: LACTATED RINGER'S 1000ML 500 ML IV PRN ×2 (13:55→19:33)
[2017-08-27] MEDS ORDERED: PENICILLIN G POTASSIUM IV 3 MU in DEXTROSE 5% 100ML 100 ML IV PRN (14:00)
[2017-08-27] MEDS ORDERED: OXYTOCIN 30 UNITS/500ML NSS IV PRN ×2 (14:00→21:45)
[2017-08-27 14:25] LABS: HEMATOCRIT 36.8 % (37-47); MEAN CELL VOLUME 84.8 fL (80-100); MEAN CORPUSCULAR HEMOGLOBIN 28.8 pg (25-34); MEAN PLATELET VOLUME 11.6 fL (7.4-10.4); PLATELET COUNT 194 K/uL (130-400); RED BLOOD COUNT 4.34 M/uL (4.2-5.4); WHITE BLOOD COUNT 8.47 K/uL (4.8-10.8)
[2017-08-27] MEDS ORDERED: PENICILLIN G POTASSIUM IV 6 MU in DEXTROSE 5% 250ML 250 ML IV ONE (14:30)
[2017-08-27] MEDS: LACTATED RINGER'S 1000ML 1,000 ML IV SCH ×2 (14:38→19:22)
[2017-08-27 15:25] VITALS: Ht 154.9 cm; Wt 79.1 kg
[2017-08-27] MEDS ORDERED: EpHEDrine SULFATE INJ 50 MG/ML AMP ONE (18:28)
[2017-08-27] MEDS ORDERED: BUPIVACAINE 0.25% 30 ML VIAL ONE (18:28)
[2017-08-27] MEDS ORDERED: FENTANYL 2MCG/ML ROPIV 1.25MG/ML 100ML BAG EPI ONE (18:28)
[2017-08-27] MEDS ORDERED: FENTANYL CITRATE INJ 50 MCG/1 ML 2 ML VIAL ONE (18:28)
[2017-08-27] MEDS ORDERED: NALOXONE HCL INJ 1 MG in SODIUM CHLORIDE 0.9% 1000ML 1,000 ML IV PRN (19:33)
[2017-08-27] MEDS ORDERED: ONDANSETRON INJ 2 MG/ML 2 ML VIAL IV PRN (19:45)
[2017-08-27] MEDS ORDERED: DiphenhydrAMINE HCL 50 MG/ML VIAL IV PRN (19:45)
[2017-08-27] MEDS ORDERED: EpHEDrine SULFATE INJ 50 MG/ML AMP IV PRN (19:45)
[2017-08-27] MEDS ORDERED: NALOXONE HCL INJ 0.4 MG/1 ML VIAL/CARP IV PRN (19:45)
[2017-08-27] MEDS ORDERED: FENTANYL 2MCG/ML ROPIV 1.25MG/ML 100ML BAG EPI PRN (19:45)
[2017-08-27] MEDS ORDERED: NALBUPHINE HCL INJ 10 MG/ML AMP IV PRN (19:45)
[2017-08-27] MEDS ORDERED: OXYCODONE/ACETAMINOPHEN 5-325 TAB PO PRN (21:45)
[2017-08-27] MEDS ORDERED: ACETAMINOPHEN 325 MG TAB PO PRN (21:45)
[2017-08-27] MEDS ORDERED: SUPERCREAM 0.870 % 15GM JAR EXT PRN (21:45)
[2017-08-27] MEDS ORDERED: BENZOCAINE 20% AER SPR 82.5 GM CAN EXT PRN (21:45)
--- NOTE | 2017-08-27 22:41 | DELIVERY SUMMARY ---
DATE OF OPERATION: 08/27/2017 The patient is a 22-year-old 3, para 1-0-1-1 white female, who had presented for her usual visit at the office and was noted to have elevated blood pressures. Two weeks prior also had elevated blood pressures. She was sent for further evaluation to labor and delivery. She is 38 and 5/7 weeks at this time and 3 cm dilated. Although PIH labs were within normal limits, we proceeded with induction of labor, because of gestational hypertension. She received effective epidural analgesia and membranes were ruptured for clear fluid. She progressed to full dilation and pushed effectively over an intact perineum for delivery of a viable male infant. Mouth and nasopharynx were suctioned after the infant was placed on the mother's abdomen. There was crying and the infant was moving all four limbs. The cord was clamped and cut and the placenta was manually extracted, as it became entrapped in the cervix. This was delivered intact with a 3-vessel cord. There were not vaginal lacerations or abrasions. Estimated blood loss was 250 mL. Mother and infant were doing well after delivery. I attest to the content of the Intraoperative Record and any orders documented therein. Any exceptions are noted below. MTDD
[2017-08-28] VITALS (7 sets, daily range): BP systolic 100–136; BP diastolic 64–87; PULSE 61–78; TEMP 36.5–37; O2SAT 98
[2017-08-28] MEDS: IBUPROFEN 600 MG TAB PO PRN ×4 (04:55→18:44)
[2017-08-28 06:43] LABS: HEMATOCRIT 37.3 % (37-47)
--- NOTE | 2017-08-28 07:21 | Anesthesia Procedure Note ---
Anesthesia Epidural Removal Nt Date & Time Aug 28, 2017 at 07:20 Vital Signs Pain Intensity: 3.0 Vital Signs Past 12 Hours Date Time Temp Pulse Resp B/P (MAP) Pulse Ox O2 Delivery O2 Flow Rate FiO2 08/28/17 04:50 37.0 71 18 135/87 (103) Room Air 08/28/17 00:45 37.0 78 20 124/64 (84) Room Air 08/28/17 00:45 Room Air Notes Mental Status: alert / awake / arousable, participated in evaluation Nausea / Vomiting: adequately controlled Pain: adequately controlled Airway Patency, RR, SpO2: stable & adequate BP & HR: stable & adequate Hydration State: stable & adequate Neuraxial Anesthesia: was administered Anesthetic Complications: no major complications apparent, pt satisfied with anesthetic care Epidural: removed without complications, with tip intact
--- NOTE | 2017-08-28 07:21 | Progress Note ---
Subjective Aug 28, 2017. Subjective conversation w/ patient, physical exam, chart review, lab review Ambulation: ambulating normally Voiding: no voiding problems Passing Gas: Yes Diet Tolerance: Regular Diet Lochia: Moderate Feeding Type: Bottle Feeding Pain: CONTROLLED Review of Systems Respiratory: No shortness of breath Abdomen: No nausea, No vomiting Female : No dysuria Objective Vital Signs Date Time Temp Pulse Resp B/P (MAP) Pulse Ox O2 Delivery O2 Flow Rate FiO2 08/28/17 04:50 37.0 71 18 135/87 (103) Room Air 08/28/17 00:45 37.0 78 20 124/64 (84) Room Air 08/28/17 00:45 Room Air Physical Exam General Appearance: WELL-APPEARING, WD/WN, NO APPARENT DISTRESS Respiratory/Chest: lungs clear, normal breath sounds, no respiratory distress Cardiovascular: regular rate, rhythm, no gallop Abdomen: normal bowel sounds, soft Fundus: Firm, Non-Tender, Relation to Umbilicus (1 below U) Extremities: non-tender, normal inspection Laboratory Results Last 24 Hours Test 08/27/17 13:08 08/27/17 14:14 08/28/17 06:23 White Blood Count 8.34 K/uL 8.47 K/uL Red Blood Count 4.40 M/uL 4.34 M/uL Hemoglobin 12.5 g/dL 12.5 g/dL 12.5 g/dL Hematocrit 37.1 % 36.8 % 37.3 % Mean Corpuscular Volume 84.3 fL 84.8 fL Mean Corpuscular Hemoglobin 28.4 pg 28.8 pg Mean Corpuscular Hemoglobin Concent 33.7 g/dl 34.0 g/dl Platelet Count 204 K/uL 194 K/uL Mean Platelet Volume 11.7 fL 11.6 fL Neutrophils (%) (Auto) 79.1 % Lymphocytes (%) (Auto) 16.2 % Monocytes (%) (Auto) 4.0 % Eosinophils (%) (Auto) 0.2 % Basophils (%) (Auto) 0.1 % Neutrophils # (Auto) 6.60 K/uL Lymphocytes # (Auto) 1.35 K/uL Monocytes # (Auto) 0.33 K/uL Eosinophils # (Auto) 0.02 K/uL Basophils # (Auto) 0.01 K/uL RDW Standard Deviation 42.3 fL 42.6 fL RDW Coefficient of Variation 13.8 % 13.8 % Immature Granulocyte % (Auto) 0.4 % Immature Granulocyte # (Auto) 0.03 K/uL Prothrombin Time 9.5 SECONDS Prothromb Time International Ratio 0.9 Activated Partial Thromboplast Time 28.0 SECONDS Partial Thromboplastin Ratio 1.1 Creatinine 0.61 mg/dl Estimated GFR () > 150.0 Estimated GFR (Non- 129.6 Aspartate Amino Transf (AST/SGOT) 15 U/L Alanine Aminotransferase (ALT/SGPT) 22 U/L Assessment and Plan Post- Day#: 1 Continue Routine Care: Resident Physician Supervision Note: I interviewed and examined the patient. Discussed with Dr. Benites and agree with findings and plan as documented in the note. Any exceptions or clarifications are listed here: [None] Documented By: Betzy Rivers 22 yof delivered 08/27 2200 GBS+ Vitals reviewed and wnl. Hgb 12.5, 12.5, 12.5. Stable. No s/s anemia. Pt doing well clinically. Continue routine post care, encourage ambulation, control pain with motrin/tylenol. Anticipate dc tomorrow pending baby. IDANIA BENITES FMR PGY 1 Resident Tracking Resident Involvement: Resident Care Provided Care Provided: OB Delivery
[2017-08-28] MEDS: DOCUSATE SODIUM 100 MG CAP PO SCH ×2 (08:00→20:00)
[2017-08-28] MEDS: PRENATAL VITAMIN TAB PO SCH (08:33)
[2017-08-28] MEDS ORDERED: BISACODYL 5 MG TABEC PO SCH (20:00)
[2017-08-29 00:52] VITALS: BP 127/84; PULSE 54; TEMP 36.4
[2017-08-29] MEDS: IBUPROFEN 600 MG TAB PO PRN ×3 (01:00→13:17)
--- NOTE | 2017-08-29 07:13 | Progress Note ---
Subjective Aug 29, 2017. Subjective conversation w/ patient, physical exam, chart review, lab review Ambulation: ambulating normally Voiding: no voiding problems (gentile is out, but pt has yet to urinate as of this AM) Passing Gas: Yes Diet Tolerance: Regular Diet Lochia: Moderate Feeding Type: Breast Feeding Review of Systems Respiratory: No shortness of breath Female : No dysuria Objective Vital Signs Date Time Temp Pulse Resp B/P (MAP) Pulse Ox O2 Delivery O2 Flow Rate FiO2 08/29/17 00:52 Room Air 08/29/17 00:52 36.4 54 16 127/84 (98) Room Air 08/28/17 19:50 36.8 61 16 100/65 (77) Room Air 08/28/17 16:00 36.7 63 18 132/81 (98) Room Air 08/28/17 16:00 Room Air 08/28/17 12:00 36.6 62 20 136/86 (103) Room Air 08/28/17 09:09 36.5 68 18 130/82 (98) 98 Room Air 08/28/17 08:45 36.5 68 18 130/82 (98) 98 Room Air 08/28/17 08:45 98 Room Air Physical Exam General Appearance: WELL-APPEARING, WD/WN, NO APPARENT DISTRESS Respiratory/Chest: lungs clear, normal breath sounds, no respiratory distress Cardiovascular: regular rate, rhythm, no gallop Abdomen: normal bowel sounds, soft Fundus: Firm, Non-Tender, Relation to Umbilicus (2 below U) Extremities: non-tender, normal inspection Assessment and Plan Post- Day#: 2 Continue Routine Care: 22 yof delivered 08/27 2200 GBS+ Vitals reviewed and wnl. Hgb 12.5, 12.5, 12.5. Stable. No s/s anemia. Pt doing well clinically. Continue routine post care, encourage ambulation, control pain with motrin/tylenol. Counselled on dc instructions. IDANIA BENITES FMR PGY 1 Resident Physician Supervision Note: I was present with Dr. Benites during the history and exam. I discussed the case with the resident and agree with the findings and plan as documented in the note. Any exceptions or clarifications are listed here: PPD#2 doing well. Discharge instructions discussed. Documented By: Kierra Soto Resident Tracking Resident Involvement: Resident Care Provided Care Provided: OB Delivery
--- NOTE | 2017-08-29 07:14 | Discharge Instructions ---
Discharge Instructions Date of Service Aug 29, 2017. Admission Reason for Admission: 38 Weeks Gestation Of Discharge Discharge Diagnosis / Problem: Spontaneous vaginal delivery Discharge Goals Goal(s): Routine recovery after delivery Medications Continue Dispensed Medications: supercream, dermaplast, tucks, lansinoh Activity Recommendations Activity Limitations: per Instructions/Follow-up section . Instructions / Follow-Up Instructions / Follow-Up ACTIVITY RECOMMENDATIONS: * Gradual return to full activity over the next 2-3 weeks. * No lifting - nothing heavier than baby over the next 2-3 weeks. * Do not engage in vigorous exercise, sexual activity or sports until cleared by your physician. * Do not drive or operate any motorized equipment until cleared by your physician. * You may shower/bathe daily. MEDICATIONS: For discomfort or pain, you may use Acetaminophen (Tylenol), Ibuprofen (Advil), or Naproxen (Aleve) following the package directions. For constipation you may use Colace following the package directions. BREAST CARE: If you are not breast feeding: * Wear a supportive bra 24 hours a day for one to two weeks. * Avoid stimulating your breasts and nipples as much as possible during the first few weeks after delivery. * When taking a shower, have the warm water hit your back, not breasts. * When your breasts feel full, apply ice packs. Usually three to four times a day helps ease the discomfort. * Take a mild pain medication (Tylenol / Motrin) when you are uncomfortable. If breast feeding: * Use breast milk to lubricate nipples. Lansinoh cream may be used for sore nipples. You do not need to remove cream prior to breast feeding. If using a different brand of cream, check the label for directions regarding removal of cream prior to nursing. * Wear a supportive bra. * If having problems with breasts or breast feeding, call a product marketing consultant or your health care provider. EPISIOTOMY CARE: After delivery, if you have an episiotomy (stitches), the following steps will ease discomfort and aid healing. * For the first 24 hours after delivery, place ice packs next to your episiotomy to help reduce swelling. * After the first 24 hour-period, sitz baths, either portable or in the tub, are suggested. A shower with a shower arm sprayed over the episiotomy may be comforting. * Jaylin care should be done after each voiding and bowel movement. Squirt warm water from a plastic bottle over the perineum (region of the body between the anus and urinary opening) and pat dry. * Use Dermoplast to ease discomfort. Shake container. Sullivan directly over the episiotomy. Place a Tucks on a clean sanitary pad next to your episiotomy. SPECIAL CARE INSTRUCTIONS: When you are discharged from the hospital, it is important for you to follow the instructions listed below: * During the first week at home, you should be able to care for yourself and your baby. In addition, the usual light household activities are encouraged. * Limit your activities to the way you feel. Do not try to clean the house or move furniture. Be sensible. * If you actively engage in sports and have done so up until the time of your delivery, you may resume these activities as soon as you feel able. This may take up to one month or even longer. Use good judgment. * Continue to take your vitamins for at least six weeks after the of your baby. * Your diet need not be limited unless you were on a special diet before your delivery. Breast-feeding mothers need around 2500 calories per day and at least 64-80 ounces of fluid per day (8 to 10 glasses). * You should eat foods from the four major food groups. Crash diets or fad diets are to be avoided. Eating lean meats, fresh fruits and vegetables, low-fat dairy products, high fiber foods and a regular exercise program, will help you get back to your pre- weight without putting your health at risk. * Constipation is sometimes a problem after delivery. Take a mild laxative as needed. If breast feeding, Milk of Magnesia is acceptable to use. You may use a suppository or Fleets enema if no episiotomy. * A daily shower or tub bath is suggested. Be sure to thoroughly and gently dry the perineum. * A bloody vaginal discharge will usually continue until around four weeks post . A small amount of bleeding may continue for as long as six weeks. Vaginal discharge changes from the bright red bleeding after delivery to pink then brownish and finally yellowish-pink before becoming white and disappearing. * Bleeding may increase with activity. Your first period may come in 4-8 weeks. If you are breast feeding, your period may be delayed even longer. * Dupree (sex) can begin whenever both you and your partner feel comfortable and do not have any form of genital infection. It is recommended that you wait at least six weeks for internal and external healing to occur. If you have questions, please talk to your health care practitioner. A condom should be used to prevent infection and . * Foreplay, gentle intercourse and lubrication is very important the first several times to prevent pain. A water-based lubricant such as K-Y jelly or Astroglide may be used. * If you have RH negative blood and your baby is RH positive, you will receive RHOGAM by injection prior to discharge. The nurse will give you a card to keep with you that has the date and place that you received RHOGAM after delivery. * During your care, you had a Rubella screen done to check for the presence of rubella antibodies in your blood. If your test was negative, you will receive a Rubella vaccine prior to discharge. This vaccine may cause a fever, soreness at the injection site and flu-like symptoms. If these symptoms persist, notify your health care practitioner. is not advised for one month after a Rubella vaccine. * Verbalizes understanding of car seat law as reviewed with patient nursing. * Car Seat hand-out given and reviewed with patient by nursing. * Shaken baby information reviewed with patient by nursing. Call you doctor if: * Heavy bleeding (saturating several pads an hour) or passing clots the size of your fist. * A fever >101 degrees F (38.3 degrees C) on two occasions four hours apart and /or chills. * Unusual pain in the pelvic or vaginal areas. * "Baby Blues" lasting longer than two weeks. If you have any questions or concerns, call your health care practitioner at . FOLLOW UP VISIT: * Please call the office at to schedule a 6 week examination. It is important you keep this appointment. It is important for you to make arrangements for either yearly or twice yearly check-ups thereafter. Current Hospital Diet Patient's current hospital diet: Regular OB Diet Discharge Diet Recommended Diet: Regular OB Diet Pending Studies Studies pending at discharge: no Medical Emergencies . Who to Call and When: Medical Emergencies: If at any time you feel your situation is an emergency, please call 911 immediately. . Non-Emergent Contact Non-Emergency issues call your: Primary Care Provider . . "Provider Documentation" section prepared by Dora Benites. . VTE Core Measure Inpt VTE Proph given/why not?: Treatment not indicated
[2017-08-29] MEDS: DOCUSATE SODIUM 100 MG CAP PO SCH (08:45)
[2017-08-29] MEDS: PRENATAL VITAMIN TAB PO SCH (08:45)
[2017-08-29 09:45] VITALS: BP 144/98; PULSE 60; TEMP 36.4; O2SAT 99
[2017-08-29 09:48] VITALS: BP 144/98; PULSE 59; TEMP 36.4; O2SAT 99
[2017-08-29 10:35] VITALS: O2SAT 99
[2017-08-29 16:20] VITALS: BP 112/77; PULSE 60; TEMP 36.7
[2017-08-29 19:20] VITALS: BP_DIAS 77; PULSE 60; TEMP 36.7
== END 2017-08-29 19:20 | disposition home or self-care (01) | DRG 775 ==
LOC: C.OPB 12:32 → C.LD 12:33 → C.OPB 13:55 → C.LD 13:55 → C.OBG 23:53
PROVIDERS: ADMIT Obstetrics & Gynecology; ATTEND Obstetrics & Gynecology
PROC: 10E0XZZ Delivery of Products of Conception, External Approach (ICD-10-PCS; principal; 2017-08-27)
PROC: 10903ZC Drainage of Amniotic Fluid, Therapeutic from Products of Conception, Percutaneous Approach (ICD-10-PCS; principal; 2017-08-27)
DX: O13.4 Gestational [pregnancy-induced] hypertension without significant proteinuria, complicating childbirth (principal); Z22.330 Carrier of Group B streptococcus; Z3A.38 38 weeks gestation of pregnancy; Z37.0 Single live birth

== ENCOUNTER → 2017-10-09 | Outpatient (CLI) | payer OTHER | END | disposition home or self-care (01) | LOC: C.PAPS 14:07 | PROVIDERS: ATTEND Obstetrics & Gynecology | DX: Z12.4 Encounter for screening for malignant neoplasm of cervix (principal) ==

== ENCOUNTER 2018-01-23 15:35 | Emergency (ER) | payer OTHER ==
[~2018-01-23] VITALS: Ht 154.9 cm; Wt 74.4 kg
[2018-01-23 15:41] VITALS: TEMP 36.9; Ht 154.9 cm; Wt 74.4 kg
--- NOTE | 2018-01-23 16:04 | EMERGENCY ROOM VISIT NOTE ---
ED Visit Note First contact with patient: 15:50 Resident Physician Supervision Note: I interviewed and examined the patient. Discussed with Dr. Ryder and agree with findings and plan as documented in the note. Documented By: Jonathon Mcknight
--- NOTE | 2018-01-23 16:24 | EMERGENCY ROOM VISIT NOTE ---
History First contact with patient: 15:50 (Anders Ryder M.D.) First contact with patient: 15:50 (Jonathon Mcknight M.D.) Chief Complaint: LEG PAIN,LEG INJURY Stated Complaint: LEG PAIN BOTH LEGS History of Present Illness 22F with a PMHx of anxiety presents to the Emergency Room with complaints of bilateral calf pain while walking x 1.5 weeks. The pain is not getting better or worse. 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 She started an estrogen/progesterone patch 7 weeks ago and is on the 3rd week of her 4 week regimen. She does also smoke 1/2 pack per day. She called her OB who sent her to the ER for a DVT rule out. Pt denies calf pain at rest. Pt denies any swelling in her LE. She also denies any prolonged immobility or recent travel. Has no history of PE or DVTs. Pt has a history of anxiety and gets SOB whenever she is anxious. Otherwise no chest pain, no dyspnea on exertion, not feeling otherwise sick. Meds: Multivitamin, OCP patch (she's on 3rd week of a 4 week regimen, 7 weeks into it total). SHX: 2 children. Source of History: patient History Limited By: other (none) Onset: 1.5 weeks ago Position: other (calves bilateral) Symptom Intensity: moderate Quality: ache Timing: other (when standing) Modifying Factors (Worsening): exertion, stretching Modifying Factors (Relieving): rest Associated Symptoms: No fevers, No chills, No chest pain, No SOB, No nausea , No fatigue, No weakness (Anders Ryder M.D.) Review of Systems See HPI for pertinent positives and negatives. A total of ten systems were reviewed and were otherwise negative. Constitutional: No fever, No chills, No weight loss Respiratory: + shortness of breath, No cough, No dyspnea on exertion Cardiovascular: No chest pain Abdomen: No pain, No nausea, No vomiting, No diarrhea, No constipation Genitourinary - Female: No dysuria Neurologic: No memory loss Psychiatric: No depression symptoms Endocrine: No fatigue Integumentary: + color change (anterior right melgar), No rash (Anders Ryder M.D.) Past Medical/Surgical History Medical Problems: (1) 38 weeks gestation of (2) Abdominal pain (3) Abdominal pain (4) Abdominal pain affecting , antepartum (5) Dental abscess (6) Dental caries (7) Depression (8) Diarrhea (9) Hypertension affecting in third trimester (10) Irregular uterine contractions (11) Nausea, vomiting and diarrhea (12) Normal labor and delivery (13) Pain, dental (14) Pain, dental (15) Pelvic pain (16) with 37 weeks completed gestation (17) Premature infant of 33 weeks gestation (18) contractions (19) Right ovarian cyst (20) Supervision of other normal (21) Threatened miscarriage Surgical Problems: (1) Dental abscess (Jonathon Mcknight M.D.) Family History Cancer (Anders Ryder M.D.) Cancer (Jonathon Mcknight M.D.) Social History Smoking Status: Current Every Day Smoker Alcohol Use: occasionally Drug Use: none Marital Status: single Housing Status: lives with family Occupation Status: employed (Anders Ryder M.D.) Current/Historical Medications Scheduled Multivit/Min/Iron/Fol Ac/Pren ( Vitamin), 1 TAB PO DAILY Physical Exam Vital Signs Date Time Temp Pulse Resp B/P (MAP) Pulse Ox O2 Delivery O2 Flow Rate FiO2 01/23/18 18:00 69 19 140/71 99 01/23/18 15:41 36.9 86 18 131/81 100 Room Air (Jonathon Mcknight M.D.) Physical Exam Gen: No acute distress. HEENT: Head - normocephalic and atraumatic. Pupils are equal, round, and reactive to light. Extraocular eye muscles are intact and sclera are anicteric. Ears - bilaterally patent canals with noninjected tympanic membranes and no evidence of hemotympanum. Nose - moist nasal mucosa without discharge. Mouth - moist buccal mucosa. Oropharynx is nonerythematous and there is no tonsillar exudate or edema noted. Neck: Supple; no JVD, nuchal rigidity, cervical lymphadenopathy, or auscultated bruits. Heart: Regular rate and rhythm. There is a normal S1 and S2 with no murmurs, clicks, or gallops appreciated. Lungs: Clear to auscultation bilaterally with no wheezes, rales, or rhonchi. No pleuritic pain on deep inspiration. Abdomen: Soft, completely nontender, nondistended, with good bowel sounds. There are no palpable pulsatile masses or hepatosplenomegaly. There is no guarding, rigidity, or rebound noted. Extremities: 2cm area of bluish discoloration over the right calf, no varicosities, no edema. There is tenderness on the lateral aspect of the anterior melgar. There are easily palpable peripheral pulses. No calf pain bilaterally. No anterior or posterior thigh pain bilaterally. No pedal edema. Neuro:The patient is awake and alert, oriented to day, time, and place. Muscle strength is 5/5 in all 4 extremities. The patient has equal planer stone strength and equal pedal push and pull. There are no cerebellar signs. (Anders Ryder M.D.) Medical Decision & Procedures ER Provider Diagnostic Interpretation: VENOUS DOPPLER LWR EXT BILA CLINICAL HISTORY: 22 years-old Female presenting with bilateral calf pain. TECHNIQUE: Real-time grayscale and color and spectral Doppler ultrasound imaging of the veins of the bilateral lower extremities was performed. Compression and augmentation were also utilized. COMPARISON: None. FINDINGS: Right: Common femoral vein: Patent. Greater saphenous vein: Patent. Deep femoral vein: Patent. Femoral vein: Patent. Popliteal vein: Patent. Calf veins: Patent. Left: Common femoral vein: Patent. Greater saphenous vein: Patent. Deep femoral vein: Patent. Femoral vein: Patent. Popliteal vein: Patent. Calf veins: Patent. Other: None. IMPRESSION: No evidence of deep venous thrombosis. (Anders Ryder M.D.) Diagnostic Interpretation: Radiology results as stated below per my review and radiologist interpretation: (Jonathon Mcknight M.D.) Medical Decision The patient's care and disposition was discussed with Dr. Mcknight, Attending ED Physician. This is a 22F with bilateral calf pain. Differential diagnosis include muscle strain, DVT, cellulitis, dermatitis, drug eruption, necrotizing fasciitis, compartment syndrome as well as others were entertained. Triage Nursing notes were reviewed. ED Course included an extensive history and physical exam and US of the lower extremities bilaterally. US was negative for DVT. 4:00 - Pt was seen and examined by Resident. 4:15 - Case was discussed with Attending Physician. 5:45pm - US results were discussed with patient (negative). This is likely a [facility] pathology. Unknown cause of bruise - pt states she may have bumped her leg. The pt was informed about the findings as listed above. All questions were answered. Return instructions were outlined and the patient was discharged in good condition. The patient was referred to PCP for recheck of the current condition. (Anders Ryder M.D.) Head Trauma GCS Score: 15 (Anders Ryder M.D.) Impression Primary Impression: Bilateral leg pain Departure Information Dispostion Home / Self-Care Condition GOOD Referrals No Doctor, Assigned (PCP) Patient Instructions My [facility] Additional Instructions The Ultrasound of your Lower Extremities was negative on both legs. Your calf pain was most likely a muscle strain from standing all day. Please stretch your calf muscles periodically while at work and once you get home. You can take Ibuprofen 600mg every 8 hours for pain as needed. Be sure to stay well hydrated while taking Ibuprofen. Proper footwear is also important, make sure you have adequate sole and arch support. Please follow up with a Primary Care doctor for follow up of your symptoms. Watch out for shortness of breath, increasing chest pain, coughing up blood or severe pain while taking a deep breath. If these occur please see your primary care doctor or come back to the ER. You may resume all of your home medications on discharge. Resident Involvement: Resident Care Provided Care Provided: Pediatric Care ED (Anders Ryder M.D.)
--- NOTE | 2018-01-23 17:25 | DIAGNOSTIC IMAGING REPORT ---
VENOUS DOPPLER LWR EXT BILA CLINICAL HISTORY: 22 years-old Female presenting with bilateral calf pain. TECHNIQUE: Real-time grayscale and color and spectral Doppler ultrasound imaging of the veins of the bilateral lower extremities was performed. Compression and augmentation were also utilized. COMPARISON: None. FINDINGS: Right: Common femoral vein: Patent. Greater saphenous vein: Patent. Deep femoral vein: Patent. Femoral vein: Patent. Popliteal vein: Patent. Calf veins: Patent. Left: Common femoral vein: Patent. Greater saphenous vein: Patent. Deep femoral vein: Patent. Femoral vein: Patent. Popliteal vein: Patent. Calf veins: Patent. Other: None. IMPRESSION: No evidence of deep venous thrombosis. Electronically signed by: Hector Kitchen M.D. 01/23/2018 5:24 PM Dictated Date/Time: 01/23/2018 5:23 PM
[2018-01-23 18:00] VITALS: BP 140/71; PULSE 69; O2SAT 99
== END 2018-01-23 18:00 | disposition home or self-care (01) ==
LOC: C.EDB 15:37 → C.EDC 18:00
DX: M79.661 Pain in right lower leg (principal); M79.662 Pain in left lower leg; S80.11XA Contusion of right lower leg, initial encounter; X58.XXXA Exposure to other specified factors, initial encounter; F17.210 Nicotine dependence, cigarettes, uncomplicated; Z79.3 Long term (current) use of hormonal contraceptives